=== PATIENT | male | born 2000 | race Caucasian/White ===

== ENCOUNTER 2020-02-23 18:17 | Emergency (ER) | payer BC, SELFPAY ==
--- NOTE | 2020-02-23 18:35 | XR_ITS ---
PROCEDURE: XR HAND RT MIN 3V CLINICAL INDICATION: INJURY Posttraumatic pain COMPARISON: No exams were available for comparison FINDINGS: No fracture or dislocation. No lytic or blastic change. There is normal mineralization. The joint spaces are well-preserved. No significant degenerative/arthritic changes. No erosive changes evident. Other findings:None. IMPRESSION: No acute findings. Dictated by: Christopher Sharma MD 02/23/2020 19:18 Christopher Sharma MD in [place] 02/23/2020 19:18
[2020-02-23 18:47] VITALS: BP 146/91; PULSE 75; RESP 18; TEMP 36.6; O2SAT 99; BMI 34.5
--- NOTE | 2020-02-23 18:51 | HMH.EDUTC ---
[facility] – [place] Disposition Clinical Impression: Superficial abrasion Crushing injury of right hand Qualifiers: Encounter type: initial encounter Qualified Code(s): S67.21XA - Crushing injury of right hand, initial encounter Disposition: Home, Self-Care Condition on Discharge: Good Instructions: DI for Abrasion, DI for Crush Injury Additional Instructions: Keep the wounds clean and dry. Follow up with your regular doctor. Apply the topical antibiotics as directed. Watch the abrasionsfor signs of worsening infection, such as worsening redness, drainage, swelling, etc. GO TO THE ER FOR ANY WORSENING SYMPTOMS Prescriptions: Mupirocin [Bactroban 2% Ointment 22gm tube] 1 applicatio TP TID 7 Days #1 tube Transmission Status: Received by [facility] #[id number] Referrals: Brendon Conley MD [Primary Care Provider] - Time of Disposition: 19:08 Medical Decision Making - Medical Records Medical records reviewed: No: I reviewed the patient's medical records. - Suraj Inquiry Pt receiving controlled substance: No Vital Signs: 02/23/20 18:47 02/23/20 19:20 Temperature 97.9 F 97.9 F Temperature Source Oral Pulse Rate 75 Pulse Rate [Radial] 75 Respiratory Rate 18 18 Blood Pressure 146/91 H Blood Pressure [Right Arm] 146/91 H Blood Pressure Mean [Right Arm] 109 Blood Pressure Source [Right Arm] Automatic Cuff Blood Pressure Position [Right Arm] Sitting 02 Sat by Pulse Oximetry 99 Oxygen Delivery Method Room Air - Radiology Data #1 Image(s): Hand Image Reviewed: Yes I reviewed the patient's radiology image Preliminary Findings: No Fracture Seen [facility] [place] HPI - General Stated complaint: AO02/22 injured r hand Time Seen by Provider: 02/23/20 18:51 Mode of Arrival: Ambulatory Source of Information: Patient Limitations: No Limitations Description of Symptoms (Recalled from Triage Doc. by RN): injured right hand while playing football HEENT Symptoms (Recalled from RN notes): No Resp Symptoms (Recalled from RN notes): No Skin Symptoms (Recalled from RN notes): Yes MS Symptoms (Recalled from RN notes): Yes Functional Status (Recalled from RN notes): wnl - History of Present Illness Provider Complaint: He states that he was assisting with football practice at the high school when a sled was push over his right hand. He has an abrasion on the back of his hand. He also states that it hurts to make a fist with that hand. His tetanus immunization is up to date. - Related Data Previous Rx's Medication Instructions Recorded Mupirocin [Bactroban 2% Ointment 1 applicatio TP TID 7 Days #1 tube 02/23/20 22gm tube] Allergies Allergy/AdvReac Type Severity Reaction Status Date / Time No Known Allergies Allergy Verified 02/23/20 18:49 - Worker's Comp Is this a Worker's Comp case?: No [facility] History - Hepatitis A Screen Drug use history?: No High risk sexual behaviors?: No History of sexually transmitted infection?: No Currently employed?: No Childcare worker?: No Do you have indoor plumbing?: Yes Do you have electricity?: Yes Attestation statement:: This patient has been screened for Hepatitis A risk factors. I have reviewed the patient's past medical history: Yes - Social History Alcohol Intake: never Occupational Status: other ROS Obtained: No All systems reviewed & no additional complaints - Constitutional Constitutional: Reports system reviewed and no additional complaints, except as docu Physical Exam - General General appearance: alert, in no apparent distress - Head Head exam: atraumatic, normocephalic, normal inspection - Eye Eye exam: Present: normal appearance, PERRL, EOMI - ENT ENT exam: Present: normal exam, normal oropharynx, mucous membranes moist, TM's normal bilaterally, normal external ear exam - Neck Neck exam: Present: normal inspection, full ROM, trachea midline. Absent: meningismus, lymphadenopathy - Chest Chest i
[2020-02-23 19:20] VITALS: BP 146/91; PULSE 75; RESP 18; TEMP 36.6
== END 2020-02-23 19:20 | disposition home or self-care (01) ==
PROVIDERS: Emergency Provider Nurse Practitioner Family; PCP Internal Medicine Adolescent Medicine
DX: S60.511A Abrasion of right hand, initial encounter (principal); S67.21XA Crushing injury of right hand, initial encounter; Y93.61 Activity, american tackle football
CPT/HCPCS: 73130; 99201

== ENCOUNTER → 2020-04-05 14:45 | Outpatient (CLI) | payer BC, SELFPAY ==
--- NOTE | 2020-04-05 14:54 | XR_ITS ---
PROCEDURE: XR HAND RT MIN 3V CLINICAL INDICATION: RT WRIST INJURY Pain COMPARISON: CR XR HAND RT MIN 3V from 02/23/2020 FINDINGS: No fracture or dislocation. No lytic or blastic change. There is normal mineralization. The joint spaces are well-preserved. No significant degenerative/arthritic changes. No erosive changes evident. Other findings:None. IMPRESSION: No acute findings. Dictated by: Christopher Sharma MD 04/05/2020 15:24 Christopher Sharma MD in [place] 04/05/2020 15:24
--- NOTE | 2020-04-05 14:54 | XR_ITS ---
PROCEDURE: XR WRIST RT MIN 3V CLINICAL INDICATION: RT WRIST INJURY Pain COMPARISON: No exams were available for comparison FINDINGS: No fracture or dislocation. No lytic or blastic change. There is normal mineralization. The joint spaces are well-preserved. No significant degenerative/arthritic changes. No erosive changes evident. Other findings:None. IMPRESSION: No acute findings. Dictated by: Christopher Sharma MD 04/05/2020 15:23 Christopher Sharma MD in [place] 04/05/2020 15:23
== END ==
PROVIDERS: PCP Internal Medicine Adolescent Medicine; Visit Provider Internal Medicine Adolescent Medicine
DX: S69.91XA Unspecified injury of right wrist, hand and finger(s), initial encounter (principal)
CPT/HCPCS: 73110; 73130

== ENCOUNTER → 2021-04-27 10:08 | Outpatient (CLI) | payer BC, SELFPAY | PROVIDERS: PCP Internal Medicine Adolescent Medicine; Visit Provider Nurse Practitioner Family | DX: Z20.822 Contact with and (suspected) exposure to COVID-19 (principal) ==

== ENCOUNTER 2022-12-02 10:46 | Emergency (ER) | payer BC, SELFPAY ==
[2022-12-02 10:47] VITALS: BP 143/87; PULSE 77; RESP 16; TEMP 36.7; O2SAT 97; BMI 32.8
--- NOTE | 2022-12-02 10:56 | XR_ITS ---
FINAL REPORT CLINICAL HISTORY: pain FINDINGS: LEFT FOOT Three views of the left foot demonstrate no acute fracture or dislocation. The visualized joint spaces are normally aligned. The soft tissues are unremarkable. IMPRESSION: No acute bony abnormality. Reviewed, Interpreted and Dictated by Gustavo Adam MD Transcribed by Akosua Askew Authenticated and [facility]
--- NOTE | 2022-12-02 10:56 | XR_ITS ---
FINAL REPORT CLINICAL HISTORY: pain FINDINGS: LEFT ANKLE Three views demonstrate no acute fracture or dislocation. The visualized joint spaces are normally aligned. There is soft tissue swelling, particularly laterally. Mortise is intact. IMPRESSION: No acute bony abnormality. Reviewed, Interpreted and Dictated by Gustavo Adam MD Transcribed by Akosua Askew Authenticated and [facility]
--- NOTE | 2022-12-02 11:16 | EXP.UTC ---
Discharge Plan Disposition Patient Disposition: Home, Self-Care Condition: Good Prescriptions Prescriptions: New ibuprofen [IBU] 800 mg tablet 800 mg PO Q8HP PRN (Reason: Moderate Pain) Qty: 30 0RF No Action mupirocin 22 GM ointment 1 applicatio TP TID 7 Days Qty: 1 0RF Referrals Follow up/Referrals: Brendon Conley MD [Primary Care Provider] - See instructions Ginette Wall DPM [Staff Physician] - See instructions Activity Restrictions/Add. Instructions Additional Instructions/Restrictions: Rest the extremity, apply ice for 15 minutes as tolerated three or four times per day, Elevate the extremity as tolerated while you are resting. Take ibuprofen for pain. I sent in a prescription to your pharmacy. Follow up with Dr. Wall (podiatry) if you continue to have symptoms. I put in a referral but you need to call her office and schedule an appointment. Follow up with your regular doctor. GO TO THE ER FOR ANY WORSENING SYMPTOMS Clinical Impressions Clinical Impression: Left ankle sprain, Sprain of left foot Instructions Patient Instructions: DI for Ankle Sprain, DI for Foot Sprain Discharge ED Provider: Arley Chavez [facility] [place] HPI General Stated complaint: AO 11/30 LT ankle pain Time Seen by Provider: 12/02/22 11:15 History of Present Illness Provider Complaint: He states that 2 days ago he twisted his left ankle and foot and fell. He has had left ankle and foot pain since then. He denies any other injury. Related Data Previous Rx's Medication Instructions Recorded mupirocin 2 % topical ointment 1 applicatio TP TID 7 days #1 tube 02/23/20 ibuprofen 800 mg tablet (IBU) 800 mg PO Q8HP PRN Moderate Pain 12/02/22 #30 tabs Allergies Allergy/AdvReac Type Severity Reaction Status Date / Time No Known Allergies Allergy Verified 02/23/20 18:49 [facility] Disclaimer: The information contained in this section may have been updated after the patient was seen, as this information can be updated by other users. Social History Smoking Status: Never smoker alcohol intake: never current occupational status: other Travel in the last 8 weeks: None ROS Obtained: Yes All systems reviewed & no additional complaints except as documented Constitutional Constitutional: Denies chills and Denies fever(s) Eyes Eyes: Denies eye discharge ENT Ears, Nose, Mouth, and Throat: Denies dizziness, Denies otalgia and Denies sore throat Cardiovascular Cardiovascular: Denies chest pain Respiratory Respiratory: Denies shortness of breath, Denies chest congestion, Denies cough, Denies stridor and Denies wheezing Gastrointestinal Gastrointestingal: Denies nausea or vomiting Musculoskeletal Musculoskeletal: Reports as per HPI Integumentary/Breasts Skin/Breast: Denies rash Neurologic Neurologic: Denies dizziness and Denies paresthesias Allergic/Immunologic Allergic/Immunologic: Denies wheezing Physical Exam General General appearance: alert and in no apparent distress Head Head exam: atraumatic, normocephalic and normal inspection Eye Eye exam: Present normal appearance, PERRL and EOMI ENT ENT exam: Present normal exam, normal oropharynx, mucous membranes moist, TM's normal bilaterally and normal external ear exam Neck Neck exam: Present normal inspection, full ROM and trachea midline; Absent meningismus or lymphadenopathy Chest Chest inspection: Present normal inspection and symmetric chest wall rise; Absent tenderness Respiratory Respiratory exam: Present normal lung sounds bilaterally; Absent respiratory distress Cardiovascular Cardiovascular exam: Present regular rate and normal rhythm; Absent JVD Abdominal Exam Abdominal exam: Present soft and normal bowel sounds; Absent distention, tenderness or guarding Extremities Exam Extremities exam: Present normal capillary refill; Absent calf tenderness Expanded Lower Extremity Exam Left: Knee exam: Present normal inspection and full ROM;
[2022-12-02 12:11] VITALS: BP 143/87; PULSE 77; RESP 16; TEMP 36.7; O2SAT 97
== END 2022-12-02 12:12 | disposition home or self-care (01) ==
PROVIDERS: Emergency Provider Nurse Practitioner Family; PCP Internal Medicine Adolescent Medicine
DX: S93.402A Sprain of unspecified ligament of left ankle, initial encounter (principal); S93.602A Unspecified sprain of left foot, initial encounter; W18.30XA Fall on same level, unspecified, initial encounter
CPT/HCPCS: 73610; 73630; 99212; 99214; G0463

== ENCOUNTER 2024-01-25 22:57 | Emergency (ER) | payer BC, SELFPAY ==
[2024-01-25 23:06] VITALS: BP 143/91; PULSE 71; RESP 20; TEMP 36.7; O2SAT 97; BMI 32.9
[2024-01-25] MEDS: LIDOCAINE 1% 10ML MDV 10 ML IJ (23:17)
[2024-01-25] MEDS: TET/DIPHTH/PERT-ADULT 0.5ML SYRINGE 0.5 ML IM (23:17)
[2024-01-25 23:44] VITALS: BP 132/88; PULSE 72; RESP 18; TEMP 36.6; O2SAT 97
--- NOTE | 2024-01-25 23:44 | HMH.EDGENADL ---
Discharge Plan Disposition Patient Disposition: Home, Self-Care Condition: Good Prescriptions Prescriptions: No Action mupirocin 22 GM ointment 1 applicatio TP TID 7 Days Qty: 1 0RF ibuprofen [IBU] 800 mg tablet 800 mg PO Q8HP PRN (Reason: Moderate Pain) Qty: 30 0RF Referrals Follow up/Referrals: Brendon Conley MD [Primary Care Provider] - See instructions Activity Restrictions/Add. Instructions Additional Instructions/Restrictions: You were evaluated in the ER and are appropriate for discharge at this time. Keep the wound clean and dry. Shower/bathe as normal. The stitches should be removed in 7 days. Call your primary care doctor for an appointment to have them removed. Return to the ER with new, worsening, or otherwise concerning symptoms. Clinical Impressions Clinical Impression: Laceration of left index finger Instructions Patient Instructions: DI for Laceration Repair Print Language Print Language: Macedonian Discharge ED Provider: Nelson Carreon General Adult HPI General Chief complaint: Wound/Laceration Stated complaint: AO 01/25/242149 laceration left index finger Time Seen by Provider: 01/25/24 23:06 Mode of Arrival: Ambulatory Source of Information: Patient Limitations: No Limitations Description of Symptoms (Recalled from ER Triage Doc. by RN): Pt reports to ED with cc of laceration to left pointer finger tip. Pt states he cut his finger on a knife. History of Present Illness HPI narrative: Otherwise healthy 23-year-old male presents to the ER with complaints of laceration to the left fingertip. Patient states he was trying to open a hard plastic package when the knife slipped, cutting the tip of the left finger. Patient has sensation, bleeding controlled. No other injuries. He has full flexion and extension of the finger. ROS otherwise negative. Patient states he has had all childhood vaccines but does not recall his last Tdap, and has not been in the last 5 years. 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 Related Data Previous Rx's ?Medication ?Instructions ?Recorded mupirocin 2 % topical ointment 1 applicatio TP TID 7 days #1 tube 02/23/20 ibuprofen 800 mg tablet (IBU) 800 mg PO Q8HP PRN Moderate Pain 12/02/22 #30 tabs Allergies Allergy/AdvReac Type Severity Reaction Status Date / Time No Known Allergies Allergy Verified 02/23/20 18:49 PFSH PFSH Disclaimer: The information contained in this section may have been updated after the patient was seen, as this information can be updated by other users. Social History (Updated 12/02/22 @ 23:15 by Arley Chavez APRN) Smoking Status: Current every day smoker alcohol intake: never current occupational status: other Travel in the last 8 weeks: None ROS Obtained: Yes Systems reviewed as appropriate & no additional complaints except as documented Positive ROS per HPI Physical Exam General General appearance: alert and in no apparent distress Head Head exam: atraumatic and normocephalic Eye Eye exam: Present PERRL and EOMI ENT ENT exam: Present mucous membranes moist Neck Neck exam: Present normal inspection and full ROM Chest Chest inspection: Present symmetric chest wall rise Respiratory Respiratory exam: Absent respiratory distress or stridor Cardiovascular Cardiovascular exam: Present regular rate and normal rhythm Extremities Exam Extremities exam: Present full ROM Neurological Exam Neurological exam: Present alert and oriented X3; Absent motor sensory deficit Psychiatric Psychiatric exam: Present normal affect and normal mood Skin Skin exam: Present warm, dry and other (1.5 cm J-shaped laceration at the distal tip of the left index finger. 2mm deep. Slow venous oozing. Neurovascularly intact. No injury to the nail or nailbed. No foreign body.) Medical Decision Making Medical Records Screening: Per USPSTF and CDC recommendations, given the prevalence of disease in our region, it is our hospital?s policy to screen for HIV and viral Hepatitis for all patients aged 18 and over and those with ongoing risk factors. Suraj Inquiry Pt receiving controlled substance: No Vital Signs: 01/25/24 23:06 Temperature 98.0 F Temperature Source Oral Pulse Rate [Left Radial] 71 Respiratory Rate 20 Blood Pressure [Right Arm] 143/91 H Blood Pressure Mean [Right Arm] 108 Blood Pressure Source [Right Arm] Automatic Cuff 02 Sat by Pulse Oximetry 97 Oxygen Delivery Method Room Air Orders (Tests/Meds): ED MEDICATIONS Discontinued Medications Generic Name Dose Route Start Last Admin Trade Name Freq PRN Reason Stop Dose Admin Lidocaine HCl 10 ml 01/25/24 23:12 01/25/24 23:17 Lidocaine 1% 10ml Mdv IJ 01/25/24 23:13 10 ml ONCE ONE Administration Tetanus/Reduced Diphtheria/Acell Pertussis 0.5 ml 01/25/24 23:12 01/25/24 23:17 Tet/Diphth/Pert-Adult 0.5ml Syringe IM 01/25/24 23:13 0.5 ml .ONCE ONE Administration Medical Decision Narrative: In summary, otherwise healthy 23-year-old male presents to the ER with laceration to the distal tip of left index finger. On evaluation patient is hemodynamically stable, afebrile, overall well-appearing, he has small laceration at the distal tip of left index finger as described in physical exam. He does have mild gaping and opens with any pressure applied to the finger. Neurovascularly intact. Given findings on exam I believe patient requires Tdap booster and laceration repair. Laceration was repaired with sutures, see procedure note for details. Given the nature of the wound, I do not believe patient requires any antibiotics at this time. He is appropriate for discharge. Patient was given instructions on continued symptom monitoring/management, wound care, follow-up instructions, and strict return precautions for the ER. He indicated understanding and the patient was discharged in stable condition Procedures Risk/Benefits of Procedure(s) Were Explained: Yes Laceration Laceration 1: Site: finger Side (If applicable): left Size (cm): 1.5 Description: linear (J-shaped) Depth: simple, single layer Local Anesthetic: lidocaine 1% (injected in ring-block fashion at base of L index finger) Amount of anesthesia used (mL): 3 Pre-repair: irrigated extensively (with sterile saline) Skin layer closed with: nylon Size (cm): 5-0 Number of sutures: 3 Technique: simple, interrupted Critical Care Critical Care Time Critical Care Time: No
== END 2024-01-25 23:46 | disposition home or self-care (01) ==
PROVIDERS: Emergency Provider Emergency Medicine; PCP Internal Medicine Adolescent Medicine
DX: S61.211A Laceration without foreign body of left index finger without damage to nail, initial encounter (principal); M79.645 Pain in left finger(s); Z23 Encounter for immunization; W26.0XXA Contact with knife, initial encounter; Y93.9 Activity, unspecified; Y92.9 Unspecified place or not applicable
CPT/HCPCS: 90471; 12001; 90715; 99283